=== PATIENT | male | born 1970 | race African-American/Black ===

== ENCOUNTER 2016-12-19 09:17 | Emergency (ER) | payer OTHER ==
[~2016-12-19] VITALS: Ht 177.8 cm; Wt 88.5 kg
[2016-12-19 09:56] LABS: BASOPHILS % (AUTO) 0.3 % (0.0-2.0); DIFF TOTAL % 100 %; EOSINOPHILS # (AUTO) 0.1 /CMM (0.0-0.7); EOSINOPHILS % (AUTO) 2.7 % (0.0-6.0); HEMATOCRIT 49 % (39-51); HEMOGLOBIN 16.2 g/dL (13.5-17.5); LYMPHOCYTES # (AUTO) 0.6 /CMM (0.8-4.8); LYMPHOCYTES % (AUTO) 20.3 % (20.0-44.0); MEAN CORPUSCULAR HEMOGLOBIN 28 PG (26.0-33.0); MEAN CORPUSCULAR HGB CONC 33 g/dl (31.0-36.0); MEAN CORPUSCULAR VOLUME 85 fL (80-96); MONOCYTES # (AUTO) 0.2 /CMM (0.1-1.30); NEUTROPHILS # (AUTO) 2.1 /CMM (1.8-8.9); NEUTROPHILS % (AUTO) 70.7 % (43.0-81.0); PLATELET COUNT (AUTO) 132 /CMM (150-450)
[2016-12-19 10:03] LABS: ANION GAP 10 (5-14); CALCIUM, SERUM 8.9 mg/dL (8.5-10.1); CARBON DIOXIDE 31 mmol/L (21-32); CHLORIDE 108 mmol/L (98-107); CREATININE 1.4 mg/dL (0.6-1.3); GFR 66 mL/min (>60); GLUCOSE 98 mg/dL (74-106); POTASSIUM 4.3 mmol/L (3.5-5.1); SODIUM SERUM 144 mmol/L (136-145); UREA NITROGEN, BLOOD 15 mg/dL (7-18)
[2016-12-19 10:09] LABS: ALANINE AMINOTRANSFERASE 33 U/L (12-78); ALBUMIN 4.1 g/dL (3.4-5.0); ASPARTATE AMINOTRANSFERASE 31 U/L (15-37); BILIRUBIN,DIRECT 0.1 mg/dL (0.0-0.2); BILIRUBIN,TOTAL 0.4 mg/dL (0.2-1.0); INDIRECT BILIRUBIN 0.3 mg/dL (0.0-1.1); TOTAL PROTEIN, SERUM 7.7 g/dL (6.4-8.2)
[2016-12-19 10:12] LABS: TROPONIN I < 0.017 ng/mL (0.00-0.056)
[2016-12-19 10:21] LABS: INR 0.98 (0.87-1.13); PROTHROMBIN TIME 10.6 SECS (9.5-12.7)
[2016-12-19 10:28] VITALS: BP 120/80
== END 2016-12-19 10:29 | disposition home or self-care (01) ==
LOC: ER 09:19
DX: R07.9 Chest pain, unspecified (principal)
CPT/HCPCS: 36415; 71010-TC; 80048-TC; 80076-TC; 84484-TC; 85025-TC; 85730-TC; A4606; Z7610

== ENCOUNTER 2019-12-11 15:09 | Emergency (ER) | payer OTHER ==
[~2019-12-11] VITALS: Ht 180.3 cm; Wt 86.2 kg
[2019-12-11 15:46] VITALS: BP 140/65
[2019-12-11] MEDS ORDERED: ACETAMINOPHEN ES 500 MG TABLET PO ONE (16:00)
[2019-12-11] MEDS ORDERED: ACETAMINOPHEN ES 500 MG TABLET ONE (16:01)
== END 2019-12-11 16:09 | disposition home or self-care (01) ==
LOC: ER 15:12
DX: J06.9 Acute upper respiratory infection, unspecified (principal); J02.9 Acute pharyngitis, unspecified

== ENCOUNTER → 2022-12-04 | Emergency (ER) | payer OTHER ==
[~2022-12-04] VITALS: Ht 177.8 cm; Wt 86.2 kg
--- NOTE | 2022-12-04 15:40 | NUR ---
PT WALKED IN TO THE ER STATING "FEELS LIKE MY HEART STOPPED" SINCE NEW 'S YUDI. PT AMBULATED TO BED WITH STEADY GAIT, A/0X4, BREATHING EVEN AND UNLABORED. VITAL SIGNS ARE WNL. PT PLACED IN [employer]. AWAITING MD ORDERS.
--- NOTE | 2022-12-04 16:53 | NUR ---
ESTABLISHED IV 18G RAC. BLOOD DRAWN AND SENT TO LAB.
[2022-12-04 17:03] LABS: BASOPHILS % (AUTO) 0.1 % (0.0-2.0); HEMATOCRIT 49 % (39-51); LYMPHOCYTES # (AUTO) 0.8 K/uL (0.8-4.8); LYMPHOCYTES % (AUTO) 21.3 % (20.0-44.0); MEAN CORPUSCULAR HGB CONC 33 g/dl (31.0-36.0); MEAN CORPUSCULAR VOLUME 88 fL (80-96); MONOCYTES # (AUTO) 0.3 K/uL (0.1-1.30); MONOCYTES % (AUTO) 7.6 % (2.0-12.0); NEUTROPHILS # (AUTO) 2.7 K/uL (1.8-8.9); PLATELET COUNT (AUTO) 119 K/uL (150-450); RED BLOOD CELL COUNT(AUTO) 5.51 MIL/uL (4.5-6.0)
[2022-12-04 17:13] LABS: CALCIUM, SERUM 8.8 mg/dL (8.5-10.1); CREATININE 1.4 mg/dL (0.6-1.3)
[2022-12-04 17:27] LABS: THYROID STIMULATING HORMONE 3.608 uIU/mL (0.358-3.74)
[2022-12-04 17:38] LABS: MAGNESIUM 2.4 mg/dL (1.8-2.4)
--- NOTE | 2022-12-04 18:53 | NUR ---
Patient discharged to home in stable condition. Written and verbal after care instructions given. Patient verbalizes understanding of instruction.IV removed. Catheter intact and site benign. Pressure and 4x4 applied to site. No bleeding noted.
[2022-12-04 18:54] VITALS: BP 122/80
== END | disposition home or self-care (01) ==
LOC: ER 15:29
DX: R00.2 Palpitations (principal)
CPT/HCPCS: 99284; 93005; 85025; 80048; 83735; 36415; 84443; A6403

== ENCOUNTER 2023-04-16 15:42 | Emergency (ER) | payer OTHER ==
[~2023-04-16] VITALS: Ht 177.8 cm; Wt 88.5 kg
[2023-04-16 16:10] VITALS: BP 121/78
--- NOTE | 2023-04-16 16:38 | NUR ---
TO ER 14,NO APPARENT CHANGE IN CONDITION
--- NOTE | 2023-04-16 18:58 | NUR ---
Patient discharged to home in stable condition. Written and verbal after care instructions given. Patient verbalizes understanding of instruction.
== END 2023-04-16 18:59 | disposition home or self-care (01) ==
LOC: ER 15:47
DX: R22.1 Localized swelling, mass and lump, neck (principal)
CPT/HCPCS: 76882

== ENCOUNTER 2025-09-10 13:33 | Emergency (ER) | payer OTHER ==
[~2025-09-10] VITALS: Ht 177.8 cm; Wt 86.6 kg
[2025-09-10] MEDS ORDERED: CEPH-570 PO (15:46)
[2025-09-10] MEDS ORDERED: MUPI22OI7 TP (15:46)
[2025-09-10] MEDS ORDERED: SULF1TAB48 PO (15:46)
[2025-09-10] MEDS: BACI/NEOM/POLY B OINT PKT 1 UDPKT PACKET TP ONE (15:48)
[2025-09-10 15:57] VITALS: BP 135/76; TEMP 98.5; O2SAT 99
== END 2025-09-10 15:59 | disposition home or self-care (01) ==
LOC: ER 13:35
DX: L02.415 Cutaneous abscess of right lower limb (principal); L03.115 Cellulitis of right lower limb